=== PATIENT | male | born 1950 | race Caucasian/White ===

== ENCOUNTER 2018-01-21 08:34 | Day surgery (SDC) | payer BC ==
[2018-01-21] MEDS ORDERED: MIDAZOLAM HCL 2MG/2ML VIAL IV ONE (08:35)
[2018-01-21] MEDS ORDERED: PROPOFOL 10 MG/ML VIAL IV ONE (08:35)
[2018-01-21] MEDS ORDERED: LIDOCAINE 2% MDV (20MG/ML) 20ML VIAL IV ONE (08:35)
--- NOTE | 2018-01-21 13:10 | Operative Note ---
DATE OF SURGERY: 01/21/2018 OPERATION: Screening COLONOSCOPY. PREOPERATIVE DIAGNOSIS: Colorectal cancer screening, average risk, subsequent 10-year followup. POSTOPERATIVE DIAGNOSIS: Left-sided diverticulosis. PREPARATION QUALITY: Good. ESTIMATED BLOOD LOSS: None. SPECIMENS: None. COMPLICATIONS: None apparent. PROCEDURE: After informed consent was obtained from the patient, he was placed in the left lateral decubitus position in the endoscopy suite, sedated and monitored by the department of anesthesia. Digital rectal examination was unremarkable. A well-lubricated EEF211 colonoscope was inserted into the rectum and advanced to the cecum. Photograph was taken. However, for unclear reasons, this picture did not capture at the conclusion of the procedure. In any event, the cecum, ileocecal valve, appendiceal orifice, ascending colon, transverse colon, descending colon, sigmoid colon, and rectum were carefully inspected. There were scattered diverticula in the left colon. No polyps, inflammation, or mass lesions were seen. The rectum was unremarkable in forward and in J-turn views. The endoscope was straightened, the rectal ampulla deflated, and the endoscope was removed. RECOMMENDATIONS: I would suggest the patient follow a high-fiber diet and use a fiber supplement such as Benefiber. He should undergo repeat exam in 10 years or sooner should symptoms warrant. As always, thank you for allowing me to participate in the healthcare of your patients. CC: HEBERT STUART MD, FACP [facility]
== END 2018-01-21 09:57 | disposition home or self-care (01) ==
LOC: HOP 08:34
PROVIDERS: ATTEND Internal Medicine Gastroenterology
DX: Z12.11 Encounter for screening for malignant neoplasm of colon (principal); K57.30 Diverticulosis of large intestine without perforation or abscess without bleeding; I10 Essential (primary) hypertension
CPT/HCPCS: 00812; G0121